=== PATIENT | female | born 1950 | race Caucasian/White ===

== ENCOUNTER 2019-06-22 09:30 | Day surgery (SDC) | payer OTHER, BC ==
--- NOTE | 2019-06-21 11:08 | RAD REPORT ---
EXAM DESCRIPTION: RAD - Chest Pa And Lat (2 Views) - 06/21/2019 11:03 am CLINICAL HISTORY: preop Chest pain. COMPARISON: No comparisons FINDINGS: The lungs are clear. The heart is normal in size. No displaced fractures. Hardware plates are noted in the cervical spine. IMPRESSION: No acute or concerning finding suspected.
--- NOTE | 2019-06-21 11:19 | EKG ---
Test Date: 2019-06-21 Test Time: 10:31:18 Manager Clinic: [facility] MEASUREMENT RESULTS: Intervals: Rate: 57 RI: 182 QRSD: 80 QT: 424 QTc: 412 [place]: P: 11 RI: 182 QRS: 48 T: 50 INTERPRETIVE STATEMENTS: Sinus bradycardia Otherwise normal ECG No previous ECG available for comparison Electronically Signed On 06-21-19 11:18:30 CDT by Mike Tidwell
[2019-06-21 11:44] LABS: Absolute Lymphocytes (CBC) 1.9 K/uL (0.7-4.9); Basophils % 0.4 % (0-1.3); Hematocrit 39.8 % (36.0-45.0); Lymphocytes % 28.7 % (15.3-44.8); MPV 9.2 fL (7.6-11.3)
[2019-06-21 11:47] LABS: BUN Blood Urea Nitrogen 22 mg/dL (7-18); Bicarbonate 28 mmol/L (21-32); Glucose Level 111 mg/dL (74-106); Potassium 4.7 mmol/L (3.5-5.1); Sodium Level 143 mmol/L (136-145)
[2019-06-21 11:50] LABS: ALT/SGPT 27 U/L (12-78); AST/SGOT 17 U/L (15-37); Albumin 3.7 g/dL (3.4-5.0); Alkaline Phosphatase 145 U/L (45-117); Bilirubin Direct < 0.1 mg/dL (0-0.2); Bilirubin Total 0.3 mg/dL (0.2-1.0); Protein, Total 7.3 g/dL (6.4-8.2)
--- OUTSIDE RECORDS SUMMARY | 2019-06-22 09:32 | XMS REPORT ---
:1950 [facility] Address [address] [place] [address] Dr. Summers [address] [place] [address] Care Team Providers Name Role Phone Unavailable Unavailable Unavailable Problems This patient has no known problems. Allergies, Adverse Reactions, Alerts This patient has no known allergies or adverse reactions. Medications This patient has no known medications.
--- OUTSIDE RECORDS SUMMARY | 2019-06-22 09:32 | XMS REPORT | Summary of Care ---
:1950 Author Organization [facility] Address [address] [place] [id number] Care Team Providers Name Role Phone Meet Park MD Primary Care Provider Reason for Referral Radiology Services (Routine) Status Reason Specialty Diagnoses / Referred By Referred To Procedures Contact Contact Closed Diagnostic Diagnoses Abdominal pain, epigastric R10.13 (ICD-10-CM) - Abdominal pain, epigastric [place], Radiology Procedures US ABDOMEN COMPLETE CHG US, ABDOM,B-SCAN &/OR REAL TIME,COMPLETE [id number] - US ABDOMEN COMPLETE [id number] - CHG US, ABDOM,B-SCAN &/OR REAL TIME,COMPLETE MD Marylou Hayward E AWILDA HACKETT [address] [place] [id number] Radiology Services (Routine) Status Reason Specialty Diagnoses / Referred By Referred To Procedures Contact Contact Closed Diagnostic Diagnoses Abdominal pain, epigastric R10.13 (ICD-10-CM) - Abdominal pain, epigastric [place], Radiology Procedures US ABDOMEN COMPLETE CHG US, ABDOM,B-SCAN &/OR REAL TIME,COMPLETE [id number] - US ABDOMEN COMPLETE [id number] - CHG US, ABDOM,B-SCAN &/OR REAL TIME,COMPLETE MD Marylou Hayward [address], [place] [address] Reason for Visit Radiology Services (Routine) Status Reason Specialty Diagnoses / Referred By Referred To Procedures Contact Contact Closed Diagnostic Diagnoses Abdominal pain, epigastric R10.13 (ICD-10-CM) - Abdominal pain, epigastric [place], Radiology Procedures US ABDOMEN COMPLETE CHG US, ABDOM,B-SCAN &/OR REAL TIME,COMPLETE [id number] - US ABDOMEN COMPLETE [id number] - CHG US, ABDOM,B-SCAN &/OR REAL TIME,COMPLETE Meet Rosas MD [address] [facility] [id number], [place] [address] Encounter Details Date Type Department Care Team Description 05/24/2019 Hospital Encounter Formerly [facility] Meet [place] April Rosas MD [address] [facility] [address] [facility] [address] [id number], [place] [address] Allergies Active Allergy Reactions Severity Noted Date Comments Adhesive Unknown - See comments 12/28/2014 All tapes , except micro tape ok documented as of this encounter (statuses as of 05/25/2019) Medications Medication Sig Dispensed Refills Start Date End Date Status FLUoxetine (PROZAC) 40 Take 40 mg by 0 Active mg capsule mouth daily. metoprolol succinate XL Take 50 mg by 0 Active (TOPROL XL) 50 mg 24 hr mouth 2 (two) tablet times daily. furosemide (LASIX) 40 Take 40 mg by 0 Active mg tablet mouth daily. ALPRAZolam (XANAX) 1 mg Take 1 mg by 0 Active tablet mouth at bedtime. multivitamin tablet Take 1 Tab by 0 Active mouth daily. Milk thistle 1000 mg CALCIUM/VITAMIN D3 Take by mouth. 0 Active (MANOLO-CALCIUM ORAL) Vitamin c 600mg / 1000mg MELATONIN ORAL Take 20 mg by 0 Active mouth. HYDROXYZINE HCL (ATARAX Take 20 mg by 0 Active ORAL) mouth as needed. estradiol (ESTRACE) 0.5g daily in the 1 Tube 5 01/01/2015 Active 0.01 % (0.1 mg/gram) vagina for 2 vaginal cream weeks, then switch to three times per week regimen (thursday, thu, Thursday) HYDROcodone-acetaminoph Take 1-2 Tabs by 20 Tab 0 02/02/2015 Active en (NORCO 5) 5-325 mg mouth every 6 tabletIndications: (six) hours as Other specified needed for Pain pre-operative (scale 4-6). examination aspirin 81 mg chewable Take 81 mg by 0 Active tablet mouth daily. mirabegron (MYRBETRIQ) Take 25 mg by 30 Tab 3 03/21/2015 Active 25 mg [id number]: mouth daily. Urge incontinence clotrimazole-betamethas Apply to area(s) 2 Bottle 2 03/21/2015 Active one (LOTRISONE) 2 (two) times lotionIndications: daily. Vaginal yeast infection documented as of this encounter (statuses as of 05/25/2019) Active Problems Problem Noted Date Urge incontinence 03/21/2015 documented as of this encounter (statuses as of 05/25/2019) Social History Tobacco Use Types Packs/Day Years Used Date Former Smoker Alcohol Use Drinks/Week oz/Week Comments Not Asked Sex Assigned at Date Recorded Not on file Job Start Date Occupation Industry Not on file Not on file Not on file Travel History Travel Start Travel End No recent travel history available. documented as of this encounter Last Filed Vital Signs Not on filedocumented in this encounter Plan of Treatment Health Maintenance Due Date Last Done Comments DTaP,Tdap,and Td Vaccines (1 - Tdap) 1967 MAMMOGRAM 1988 COLONOSCOPY 1998 Zoster Recombinant Vaccine (SHINGRIX) (1 of 2) 1998 Medicare Wellness Visit 2013 Osteoporosis Screening 2013 PNEUMOCOCCAL VACCINES 65+ (1 of 2 - PCV13) 2013 INFLUENZA VACCINE 06/26/2019 HEPATITIS C (HCV) SCREEN Completed 02/02/2015 documented as of this encounter Implants Implanted Type Area Desk Editor Device Shelf Model / Identifier Expiration Serial / Date Lot Gynecare Tvt Exact Continence System, [employer] #Tvtrl - [id number] SLING N/A: J[employer]J 08/25/2015 TVTRL / Implanted: Qty: 1 on 02/09/2015 by Carl Madison at [facility] Perineum / [id number] documented as of this encounter Procedures Procedure Name Priority Date/Time Associated Diagnosis Comments US ABDOMEN COMPLETE Routine 05/24/2019 11:03 AM Abdominal pain, Results for this CDT epigastric procedure are in the results section. documented in this encounter Results US ABDOMEN COMPLETE (05/24/2019 11:03 AM CDT) Specimen Narrative Performed At HISTORY: Epigastric abdominal pain. PACS/VR/DOSE TECHNIQUE: Upper abdominal organs were evaluated in multiple planes with the patient in multiple different positions, without and with color imaging. FINDINGS: Liver is 14.6 cm, spleen is 7.4 x 2.9 cm, right kidney is 10.2 x 4.7 x 4.3 cm and left kidney is 10 x 5.8 x 4.6 cm in size. Mild diffuse hepatic steatosis is noted. No focal lesions are detected in these organs. Cortex of both kidneys range betweenmm andmm. No hydronephrosis, free fluid in the upper abdomen or aortic aneurysm detected. Visualized portions of the pancreas appear normal. Hepatic and portal venous system appear patent, with hepatopetal portal flow noted. Gallbladder appears to be of normal size and shape with mild diffuse thickening of the gallbladder lr and an 18 mm gallstone near the neck causing acoustic shadowing. No fluid detected in the pericholecystic space. Common hepatic duct is 3.2 mm. CONCLUSIONS: Chronic cholecystitis with cholelithiasis. Procedure Note [facility], Radiant Results Inft User - 05/24/2019 11:14 AM CDT HISTORY: Epigastric abdominal pain. TECHNIQUE: Upper abdominal organs were evaluated in multiple planes with the patient in multiple different positions, without and with color imaging. FINDINGS: Liver is 14.6 cm, spleen is 7.4 x 2.9 cm, right kidney is 10.2 x 4.7 x 4.3 cm and left kidney is 10 x 5.8 x 4.6 cm in size. Mild diffuse hepatic steatosis is noted. No focal lesions are detected in these organs. Cortex of both kidneys range between mm and mm. No hydronephrosis, free fluid in the upper abdomen or aortic aneurysm detected. Visualized portions of the pancreas appear normal. Hepatic and portal venous system appear patent, with hepatopetal portal flow noted. Gallbladder appears to be of normal size and shape with mild diffuse thickening of the gallbladder lr and an 18 mm gallstone near the neck causing acoustic shadowing. No fluid detected in the pericholecystic space. Common hepatic duct is 3.2 mm. CONCLUSIONS: Chronic cholecystitis with cholelithiasis. Performing Organization Address City/State/Zipcode Phone Number PACS/VR/DOSE documented in this encounter Visit Diagnoses Diagnosis Abdominal pain, epigastric documented in this encounter Insurance Payer Benefit Plan / Subscriber ID Effective Phone Address Type Group Dates MEDICARE MEDICARE PART A xxxxxxxxxx 2013-Pres [phone] [address] Medicare & B ent [id number] [place] [phone] BCBS OF [facility] [id number] 2013-Pres [phone] Medicare [place] [employer] ent [phone] [place] [address] documented as of this encounter
[2019-06-22] MEDS ORDERED: Ringers Lactate 1,000 ML IV ONE ×2 (09:39→12:30)
[2019-06-22] MEDS ORDERED: CEFOXITIN/SWI 1gm 1 GM/10 ML SYR ONE (09:40)
[2019-06-22] MEDS ORDERED: PROPOFOL 200 MG/20 ML VIAL IV ONE (10:48)
[2019-06-22] MEDS ORDERED: ROCURONIUM 50 MG/5 ML VIAL IV ONE (10:49)
[2019-06-22] MEDS ORDERED: GLYCOPYRROLATE 0.2 MG/ML SYR ONE ×3 (10:50→11:37)
[2019-06-22] MEDS ORDERED: FENTANYL CITR 250 MCG/5 ML ONE (10:51)
[2019-06-22] MEDS ORDERED: LIDOCAINE 2% MPF 5 ML VIAL ONE (10:51)
[2019-06-22] MEDS ORDERED: NEOSTIGMINE 1 MG/ML -10 ML VIAL ONE (10:52)
[2019-06-22] MEDS ORDERED: ONDANSETRON 4 MG/2 ML VIAL ONE (10:52)
[2019-06-22] MEDS ORDERED: MIDAZOLAM HCL 2 MG/2 ML INJ ONE (11:12)
--- NOTE | 2019-06-22 11:22 | P.HP ---
Certification for Inpatient Patient admitted to: Observation With expected LOS: <2 Midnights Patient will require the following post-hospital care: None Practitioner: I am a practitioner with admitting privileges, knowledge of patient current condition, hospital course, and medical plan of care. Services: Services provided to patient in accordance with Admission requirements found in Title 42 Section 412.3 of the Code of Federal Regulations Patient History Date of Service: 06/22/19 History of Present Illness: A cholecystitis with cholelithiasis Open the the patient has been experiencing right upper quadrant abdominal pain, radiating into her back, for the last few years. On recent workup wasy with cholelithiasis. Allergies nickel Allergy (Unverified 06/21/19 10:18) Unknown Tape Allergy (Uncoded 06/21/19 10:18) Unknown Home Medications: ALPRAZolam [Xanax] 1 mg PO BEDTIME PRN 06/21/19 Esomeprazole Mag Trihydrate [Nexium] 40 mg PO DAILY 06/21/19 Fluoxetine HCl [Prozac] 40 mg PO DAILY 06/21/19 Metoprolol Succinate [Toprol Xl] 100 mg PO BID 06/21/19 - Past Medical/Surgical History Has patient received pneumonia vaccine in the past: Yes Diabetic: No Past Medical History: Patient denies medical history -: Previous tram flap, onlay mesh on abdomen - Social History Smoking Status: Former smoker Alcohol use: Yes Place of Residence: Home Review of Systems 10-point ROS is otherwise unremarkable Physical Examination - Vital Signs Temperature: 97.7 F Blood Pressure: 152/65 Pulse: 61 Respirations: 19 - Physical Exam General: Alert HEENT: Sclerae nonicteric Respiratory: Normal air movement Cardiovascular: Normal S1 S2 Gastrointestinal: Soft and benign External genitalia: Deferred Rectal: Deferred - Studies Laboratory Data (last 24 hrs) 06/21/19 10:35: Total Bilirubin 0.3, AST 17, ALT 27, Alkaline Phosphatase 145 H 06/21/19 10:35: Sodium 143, Potassium 4.7, BUN 22 H, Creatinine 0.64, Glucose 111 H 06/21/19 10:35: WBC 6.8, Hgb 13.2, Hct 39.8, Plt Count 278 Imagings Data: Has documented cholecystitis (chronic) Assessment and Plan - Plan This patient is chronic cholecystitis with cholelithiasis. I have discussed with her her surgical options. We will do a laparoscopic possible open cholecystectomy with cholangiogram. The risks of this procedure have been discussed. The possibility of bleeding, infection, injury to bowel blood vessels and bile ducts were explained. The possible need for an open and/or further surgeries and procedures was described. The fact that she has mesh inside the may necessitate a open procedure and the possibility of the mesh becoming infected were explained. She understands and wants us to proceed. Discharge Plan: Home Plan to discharge in: 24 Hours - Advance Directives Does patient have a Living Will: No Does patient have a Durable POA for Healthcare: No - Code Status/Comfort Care Code Status: Full Code
[2019-06-22] MEDS ORDERED: EPHEDRINE SULF 50 MG/ML VIAL ONE (11:38)
--- NOTE | 2019-06-22 13:02 | P.OP ---
Preoperative diagnosis: Chronic cholecystitis with cholelithiasis Postoperative diagnosis: The same Primary procedure: Laparoscopic cholecystectomy Secondary procedure: Cholangiogram Anesthesia: General Estimated blood loss: Less than 10 cc Specimen: In gallbladder and contents Operative Technique: The patient was brought to the operating room placed supine on the table. After the induction of adequate general endotracheal anesthesia, the area of the abdomen is prepped with a DuraPrep solution, and draped in the usual aseptic manner. A subumbilical incision was made. This brought down through the skin and subcutaneous tissue. We could see the Marlex mesh that had been previously placed for an onlay repair during the patient's tram flap a number of years ago. We carefully went through this. We could see the posterior sheath which we opened. The peritoneum was visualized and after placing the Visiport over a piece of mesenteric fat fired allowing access to the peritoneal cavity. A pneumoperitoneum was now created. A 5 mm trocar was placed in the upper midline, and 2 other 5 mm trocars on the right lateral side of the abdomen. The patient was then placed in reverse Trendelenburg and rolled to the left. We could visualize the right upper quadrant. We could see there was some chronic inflammation with the omentum adherent to the inferior edge of the right lobe of the liver. This was taken down using blunt sharp dissection. There was also adhesions of the duodenum to the actual gallbladder itself. This was gently taken down using blunt sharp dissection as well as a judicious use of electro cautery. The Talia's pouch was now exposed. Gentle dissection was done to expose the cystic duct and artery. Having obtained the critical view a clip was placed between the gallbladder and the cystic duct. An opening was made into the cystic duct through which we obtained a normal intraoperative cholangiogram. The 1 blur on that was where the balloon had been inserted fully into the common bile duct, and does not represent a filling defect. The catheter was now removed. Clips were placed on the distal portion of the cystic duct which was then fully transected. A clip was placed on the cystic artery which was divided. The gallbladder was now dissected free from the liver bed, placed into an Endo-Catch, and brought out through the umbilical trocar site. At this point the umbilical defect was approximated using interrupted suture of absorbable material placed using the Endo Close. The pneumoperitoneum was collapsed, the trocars removed, ran the skin was then addressed. Due to were allergy to quentin, interrupted sutures of chromic were used to approximate the skin. There were mom was now placed on the skin did close the incisions. At the end of procedure she was stable when sent to the recovery room. Needle sponge instrument count were correct. No drains were placed. Complications: None Transferred to: Recovery Room Condition: Good
[2019-06-22] MEDS: HYDROMORPHONE HCL 1 MG/ML INJ ONE ×2 (13:17→13:41)
[2019-06-22] MEDS ORDERED: MORPHINE 4 MG/ML SYR IV PRN (13:38)
[2019-06-22] MEDS: Ringers Lactate 1,000 ML IV SCH ×3 (15:11→23:38)
[2019-06-22] MEDS ORDERED: PNEUMOCOCCAL VACCINE 0.5 ML IMVAC ONE (16:00)
[2019-06-22] MEDS: ONDANSETRON 4 MG/2 ML VIAL IV PRN (17:58)
[2019-06-22] MEDS: HYDROCODONE/APAP 7.5/325 MG TAB PO PRN (20:39)
[2019-06-23] MEDS: ONDANSETRON 4 MG/2 ML VIAL IV PRN ×2 (00:42→11:20)
[2019-06-23] MEDS: HYDROCODONE/APAP 7.5/325 MG TAB PO PRN ×2 (04:58→11:20)
[2019-06-23] MEDS: Ringers Lactate 1,000 ML IV SCH (09:14)
--- NOTE | 2019-06-23 13:44 | RAD REPORT ---
EXAM DESCRIPTION: RAD - Cholangiogram Oper-Xray Or - 06/23/2019 1:31 pm CLINICAL HISTORY: LAP CARLOS Intraoperative cholangiogram. COMPARISON: No comparisons FINDINGS: Cystic duct injection was performed by operating surgeon. Common bile duct is normal calib er without evidence of a retained stone. Mild smooth tapering of the distal common duct may be relate d to mucosal edema. Total fluoro time: 0.3 minutes IMPRESSION: No evidence of retained common duct stone.
== END 2019-06-23 14:55 | disposition home or self-care (01) ==
LOC: OR 09:30 → 2ND 13:57 → OR 06-23 14:55
PROVIDERS: ATTEND Surgery
PROC: BF03YZZ Plain Radiography of Gallbladder and Bile Ducts using Other Contrast (ICD-10-PCS; 2019-06-22)
PROC: 0FT44ZZ Resection of Gallbladder, Percutaneous Endoscopic Approach (ICD-10-PCS; principal; 2019-06-22 11:00)
DX: K80.10 Calculus of gallbladder with chronic cholecystitis without obstruction (principal); I10 Essential (primary) hypertension; F32.9 Major depressive disorder, single episode, unspecified; F41.9 Anxiety disorder, unspecified; Z91.048 Other nonmedicinal substance allergy status; Z87.891 Personal history of nicotine dependence
CPT/HCPCS: 93005; 85025; 80048; 36415; 80076; 88304; 74300; 71046; 47563; J2704; J2710; J2250; J3010; J1170; J2405 ×4; Q9967

== ENCOUNTER → 2021-08-21 | Day surgery (SDC) | payer OTHER, BC ==
[2021-08-21 10:01] LABS: Potassium 4.3 mmol/L (3.5-5.1)
--- NOTE | 2021-08-21 10:53 | RAD REPORT ---
EXAM DESCRIPTION: US - Guided FNA Non Breast - 08/21/2021 10:43 am CLINICAL HISTORY: [id number] COMPARISON: Thyroid Para Parotid Gland dated 08/12/2021 FINDINGS: Preoperative diagnosis: Right thyroid nodule. Post operative diagnosis: Same. Conscious Sedation: None Fluoroscopy time: None Contrast used: None Estimated blood loss: Minimal Specimens:3 fine-needle aspirates were obtained with a 25 gauge needle The right neck was prepped and draped in the usual sterile fashion. 1% lidocaine was infiltrated into the subcutaneous tissues for local anesthesia. Real time ultrasound scanning of the right neck demon strated the suspicious thyroid nodule. Under ultrasound guidance, using a 25 gauge needle, several fi ne needle aspirates were obtained, 3 specimens were obtained of this lesion and sent to pathology for evaluation. There were no complications. IMPRESSION: Technically successful ultrasound-guided fine-needle aspiration of a suspicious right th yroid nodule.
== END ==
LOC: FNA 10:05
PROVIDERS: ATTEND Family Medicine
PROC: 0GJK3ZZ Inspection of Thyroid Gland, Percutaneous Approach (ICD-10-PCS; principal; 2021-08-21)
PROC: BG44ZZZ Ultrasonography of Thyroid Gland (ICD-10-PCS; 2021-08-21)
DX: E04.1 Nontoxic single thyroid nodule (principal); R79.9 Abnormal finding of blood chemistry, unspecified; I10 Essential (primary) hypertension
CPT/HCPCS: 36415; 80051; 88162